=== PATIENT | male | born 1945 | race Caucasian/White ===

== ENCOUNTER 2024-03-12 08:21 | Outpatient (AMB) | payer MEDICARE, SELFPAY ==
[2024-03-12 08:53] VITALS: BP 114/70; PULSE 66; TEMP 36.9; O2SAT 97; BMI 30.3
--- NOTE | 2024-03-12 08:53 | MHC.OFFWIV ---
Intake Vital Signs 03/12/24 08:53 Height 5 ft 10 in Weight 211 lb BMI 30.3 BP 114/70 Blood Pressure Location Rt brachial Position Sitting Pulse 66 Pulse Source Pulse Oximeter Temp 98.5 F Temp Source Oral Pulse Oximetry (%) 97 Oxygen Delivery Method Room Air Intake Visit Reasons: EP-insect biter Intake Note: pt c/o insect bite ? Bee sting . RT wrist. Swelling Patient Tobacco Use Status: Never used Tobacco Allergies No Known Allergies Allergy (Verified 03/12/24 09:11) Do you need a note to return to daycare/school/sports/work: No HPI HPI Comments History of Present Illness Details Domenic presented to the walk-in today for sick visit Complaining of redness, itching, swelling to the right wrist after being stung by a bee 2 days ago Denies fever, chills, drainage, weakness, dizziness Has been applying topical hydrocortisone and topical Benadryl without improvement He is concerned disease going on a cruise in 4 days and the redness and swelling have worsened Denies pain, dizziness, vomiting, nausea, diarrhea, fever PFSH Social History Patient Tobacco Use Status: Never used Tobacco Review of Systems Const All systems reviewed & are unremarkable except as noted in HPI and below Physical Exam Vital Signs: Last Vital Signs Temp 98.5 F 03/12/24 08:53 Pulse 66 03/12/24 08:53 BP 114/70 03/12/24 08:53 Pulse Ox 97 03/12/24 08:53 Oxygen Delivery Method Room Air 03/12/24 08:53 BMI result Body Mass Index 30.3 General: awake, alert, oriented. Answers questions appropriately. Fully engaged in examination. Skin: warm, dry, intact HEENT: Normocephalic. Hearing intact. Cardiac: External chest normal in appearance. Respiratory: No cough, audible wheezing or stridor. Abdomen: without gross distension. MS: Right wrist: Swelling, warmth, redness anterior right wrist extending intermediate up the forearm. No lymphangitis noted. No abscess, drainage, tenderness noted Neurological: Oriented to person, place, time and situation. Thought process intact. No gait abnormalities appreciated. Psychiatric: Appropriate mood and affect. Good judgment and insight. Assessment & Plan Assessment & Plan (1) Bee sting: Code(s): T63.441A - Toxic effect of venom of bees, accidental (unintentional), initial encounter Plan Hydroxyzine 25 mg p.o. twice daily as needed. Prednisone 40 mg p.o. daily x5 days Keflex 500 mg p.o. 3 times daily Apply ice. Area was marked with skin marker. Patient will monitor closely and return to walk-in or be seen in the ER if it continues to spread. Lengthy discussion with patient regarding infection versus histamine reaction, he will monitor closely. All questions and concerns were answered, patient agrees with the pain. He was advised when to seek treatment in the emergency room, he will follow up with PCP or walk-in if no improvement. Medications: New hydroxyzine HCl 25 mg PO BID PRN 20 tabs 0RF itching prednisone 40 mg (2 x 20 mg) PO DAILY 5 days 10 tabs 0RF cephalexin 500 mg PO TID 7 days 21 caps 0RF Coding Level of Care Code Est Pt Level 3 (10343) Diagnoses Bee sting T63.441A
== END 2024-03-12 10:50 | disposition home or self-care (01) ==
PROVIDERS: PCP Internal Medicine; Visit Provider Registered Nurse Emergency
DX: T63.441A Toxic effect of venom of bees, accidental (unintentional), initial encounter (principal)
CPT/HCPCS: 99213